=== PATIENT | female | born 1995 | race Asian ===

== ENCOUNTER 2021-08-23 09:20 | Emergency (ER) | payer OTHER ==
[~2021-08-23] VITALS: Ht 170.2 cm; Wt 73.0 kg
[2021-08-23 09:24] VITALS: BP 116/72
[2021-08-23] MEDS ORDERED: AMOXICILLIN/POTASSIUM CLAVULANATE 875/125MG TAB PO ONE (11:00)
[2021-08-23] MEDS ORDERED: AMOX1TAB16 MT (11:12)
== END 2021-08-23 11:23 | disposition home or self-care (01) ==
LOC: ER 10:31
DX: H66.91 Otitis media, unspecified, right ear (principal); Z20.822 Contact with and (suspected) exposure to COVID-19
CPT/HCPCS: 87426; 99283; C9803